=== PATIENT | male | born 1980 | race African-American/Black ===

== ENCOUNTER 2019-12-26 07:41 | Emergency (ER) | payer SELFPAY ==
[~2019-12-26] VITALS: Ht 162.6 cm; Wt 59.0 kg
[2019-12-26 07:43] VITALS: BP 134/74
[2019-12-26 09:03] LABS: CLARITY URINE CLOUDY (CLEAR); COLOR URINE DARK YELLOW (YELLOW); KETONES URINE TRACE (NEGATIVE); LEUKOCYTE ESTERASE URINE 3+ (NEGATIVE); NITRITE URINE NEGATIVE (NEGATIVE); OCCULT BLOOD URINE 2+ (NEGATIVE); PH URINE 5.5 (4.5-8.0); PROTEIN URINE 1+ (NEGATIVE); SPECIFIC GRAVITY URINE 1.026 (1.005-1.030)
[2019-12-26] MEDS ORDERED: CEFTRIAXONE SODIUM 250 MG/VIAL IM ONE (09:15)
[2019-12-26] MEDS ORDERED: AZITHROMYCIN 500 MG TABLET PO ONE (09:15)
[2019-12-26] MEDS ORDERED: LIDOCAINE HCL 1% 20ML VIAL (Pyxis) INJ INFIL ONE (09:15)
[2019-12-28 04:10] LABS: NEISSERIA GONORRHOEAE NAA Negative (Negative)
== END 2019-12-26 09:45 | disposition home or self-care (01) ==
LOC: ER 08:09
DX: N39.0 Urinary tract infection, site not specified (principal)
CPT/HCPCS: 81003; 87077; 87086; 87186; 87491; 87591; 96372; 99283; J0696; J3490